=== PATIENT | female | born 1990 | race Caucasian/White ===

== ENCOUNTER 2025-02-09 15:01 | Inpatient (IN) | payer OTHER ==
[~2025-02-09] VITALS: Ht 167.6 cm; Wt 59.7 kg
[2025-02-09 20:15] VITALS: BP 107/79; PULSE 72; RESP 16; TEMP 98.1; O2SAT 97
[2025-02-09] MEDS ORDERED: mag hydrox/Alum hydrox/simeth 30ml oral suspension PO PRN (20:15)
[2025-02-09] MEDS ORDERED: loperamide 2mg capsule PO PRN (20:15)
[2025-02-09] MEDS ORDERED: CHOL500044 PO (21:06)
[2025-02-09] MEDS ORDERED: ESCI20TA36 PO (21:06)
[2025-02-09] MEDS ORDERED: PANT-47 PO (21:06)
[2025-02-09] MEDS ORDERED: LURA120T PO (21:06)
[2025-02-09] MEDS ORDERED: TRAZ-251 PO (21:06)
[2025-02-09] MEDS: traZODone 50mg tablet PO PRN (22:21)
[2025-02-10] MEDS: pantoprazole 40mg Tablet.DR PO SCH (07:29)
[2025-02-10] MEDS: ESCITALOPRAM 10 mg tablet 10 MG TABLET PO SCH (07:29)
[2025-02-10] MEDS: lurasidone 60mg tablet PO SCH (07:29)
[2025-02-10] MEDS: cholecalciferol (vitamin D3) 1,000 unit (25mcg) tablet PO SCH (07:30)
[2025-02-10 07:31] LABS: BASOPHILS # (AUTO) 0.1 X10'3 (0-0.2); BASOPHILS % (AUTO) 0.9 % (0-1); EOSINOPHILS # (AUTO) 0.3 X10'3 (0-0.9); EOSINOPHILS % (AUTO) 4.2 % (0-6); HEMATOCRIT 40.8 % (35.0-45.0); LYMPHOCYTES # (AUTO) 2.4 X10'3 (1.1-4.8); LYMPHOCYTES % (AUTO) 32.3 % (21-51); MEAN CORPUSCULAR HEMOGLOBIN 31.7 PG (27.0-31.0); MEAN CORPUSCULAR HGB CONC 34.2 g/dL (33.0-36.5); MEAN CORPUSCULAR VOLUME 92.7 FL (78-98); MEAN PLATELET VOLUME 7.6 FL (7.4-10.4); MONOCYTES # (AUTO) 0.8 X10'3 (0-0.9); MONOCYTES % (AUTO) 10.5 % (2-12); NEUTROPHILS # (AUTO) 3.8 X10'3 (1.8-7.7); NEUTROPHILS % (AUTO) 52.1 % (42-75); PLATELET COUNT 302 X10'3 (140-440); RED CELL DISTRIBUTION WIDTH 14.3 % (11.5-14.5); WHITE BLOOD COUNT 7.3 X10'3 (4.5-11.0)
[2025-02-10 07:39] LABS: ALANINE AMINOTRANSFERASE 19 U/L (12-78); ALBUMIN 3.8 G/DL (3.4-5.0); ALKALINE PHOSPHATASE 77 IU/L (46-116); ANION GAP 8 (8-16); ASPARTATE AMINO TRANSFERASE 15 U/L (10-37); BILIRUBIN,TOTAL 0.9 MG/DL (0.1-1.0); BLOOD UREA NITROGEN 17 MG/DL (7-18); BUN/CREATININE RATIO 18.7 (10.0-20.0); CALCIUM 9.1 MG/DL (8.5-10.1); CHLORIDE 102 MMOL/L (99-107); CHOLESTEROL 146 MG/DL (0-200); CREATININE 0.91 MG/DL (0.40-0.90); GLUCOSE 75 MG/DL (70-104); HDL CHOLESTEROL 48 MG/DL (35-60); LDL CHOLESTEROL 88 MG/DL (50-100); POTASSIUM 3.7 MMOL/L (3.5-5.1); SODIUM 138 MMOL/L (135-145); TOTAL CARBON DIOXIDE 27.7 MMOL/L (24-32); TOTAL PROTEIN 7.8 G/DL (6.4-8.2); TRIGLYCERIDES 70 MG/DL (20-135); eCRCL 83 ML/MIN; eGFR 72 ML/MIN
[2025-02-10 08:00] VITALS: BP 108/70; PULSE 68; RESP 18; TEMP 97.9; O2SAT 98
[2025-02-10 08:11] LABS: HEMOGLOBIN A1C 4.6 % (4.5-6.2)
[2025-02-10] MEDS: hydrOXYzine 25 MG tablet PO PRN (12:29)
[2025-02-10 19:39] VITALS: RESP 18; O2SAT 99
[2025-02-10] MEDS: traZODone 50mg tablet PO PRN (19:45)
[2025-02-10 20:14] VITALS: BP 107/76; PULSE 86; RESP 14; TEMP 98.9; O2SAT 99
[2025-02-11 07:30] VITALS: BP 97/52; PULSE 63; RESP 16; TEMP 97.8; O2SAT 100
[2025-02-11] MEDS: lurasidone 20mg tablet PO SCH (07:32)
[2025-02-11] MEDS: lurasidone 60mg tablet PO SCH (07:32)
[2025-02-11] MEDS: magnesium hydroxide 30ml (MOM) UD suspension PO PRN (15:42)
[2025-02-11 19:00] VITALS: RESP 19; O2SAT 99
[2025-02-11] MEDS: acetaminophen 325mg tablet PO PRN (19:28)
[2025-02-11 20:00] VITALS: BP 119/66; PULSE 95; RESP 19; TEMP 97.8; O2SAT 99
[2025-02-11] MEDS: traZODone 50mg tablet PO PRN (20:52)
[2025-02-12 07:30] VITALS: BP 96/57; PULSE 83; RESP 14; TEMP 98; O2SAT 97
[2025-02-12] MEDS: magnesium citrate 296ml oral solution PO ONE (09:32)
[2025-02-12 19:00] VITALS: RESP 16; O2SAT 99
[2025-02-12 20:00] VITALS: BP 115/73; PULSE 78; RESP 16; TEMP 98.6; O2SAT 99
[2025-02-12] MEDS: docusate sod 100mg capsule PO SCH (20:58)
[2025-02-12] MEDS: traZODone 50mg tablet PO PRN (20:58)
[2025-02-13 07:30] VITALS: BP 84/58; PULSE 68; RESP 18; TEMP 96.7; O2SAT 98
[2025-02-13 09:30] VITALS: BP 98/64; PULSE 70
[2025-02-13 19:00] VITALS: RESP 19; O2SAT 98
[2025-02-13 20:00] VITALS: BP 101/73; PULSE 80; RESP 19; TEMP 97.6; O2SAT 99
[2025-02-14 07:00] VITALS: RESP 18; O2SAT 97
[2025-02-14 08:00] VITALS: BP 100/62; PULSE 78; RESP 18; TEMP 97.8; O2SAT 97
[2025-02-14 19:00] VITALS: RESP 16; O2SAT 97
[2025-02-14 20:00] VITALS: BP 94/55; PULSE 68; RESP 16; TEMP 98.7; O2SAT 97
[2025-02-14] MEDS: acetaminophen 325mg tablet PO PRN (20:25)
[2025-02-15 07:00] VITALS: RESP 17; O2SAT 98
[2025-02-15 08:17] VITALS: BP 108/70; PULSE 65; RESP 17; TEMP 97.9; O2SAT 98
[2025-02-15] MEDS ORDERED: ESCI20TA36 PO (09:54)
[2025-02-15] MEDS ORDERED: LURA120T2 PO (09:54)
== END 2025-02-15 11:27 | disposition home or self-care (01) | DRG 885 ==
LOC: ADULT MH 20:05 → UNDOADMIN 20:05 → ADULT MH 02-10 04:16
PROVIDERS: ADMIT Psychiatry & Neurology Psychiatry; ATTEND Psychiatry & Neurology Psychiatry
DX: F31.30 Bipolar disorder, current episode depressed, mild or moderate severity, unspecified (principal); R45.851 Suicidal ideations; K59.00 Constipation, unspecified; F12.90 Cannabis use, unspecified, uncomplicated; F41.9 Anxiety disorder, unspecified; Z91.51 Personal history of suicidal behavior; Z79.899 Other long term (current) drug therapy
CPT/HCPCS: 36415; 80053; 80061; 83036; 85025; 87081; 99285; Q0177